=== PATIENT | male | born 1965 | race Two or more races ===

== ENCOUNTER 2025-09-08 10:54 | Inpatient (IN) | payer OTHER ==
[2025-09-08 11:20] VITALS: BMI 20.5
[2025-09-08] MEDS ORDERED: BENZOCAINE/MENTHOL (CHLORASEPTIC ) LOZENGE MM PRN (11:30)
[2025-09-08] MEDS ORDERED: METHOCARBAMOL 500 MG TABLET PO PRN (11:30)
[2025-09-08] MEDS ORDERED: IBUPROFEN 400 MG TABLET (FP) PO PRN (11:30)
[2025-09-08] MEDS ORDERED: LOPERAMIDE HCL 2 MG CAPSULE PO PRN (11:30)
[2025-09-08] MEDS ORDERED: ONDANSETRON *ODT* 4 MG TABLET SL PRN (11:30)
[2025-09-08] MEDS ORDERED: NALOXONE (NARCAN) HCL 4 MG/0.1 ML SPRAY NS PRN (11:30)
[2025-09-08] MEDS ORDERED: BISMUTH SUBSALICYLATE 524 MG/30 ML PO PRN (11:30)
[2025-09-08] MEDS ORDERED: guaiFENesin 600 MG TABLET.ER (FP) PO PRN (11:30)
[2025-09-08] MEDS ORDERED: IBUPROFEN 600 MG TABLET (FP) PO PRN (11:30)
[2025-09-08] MEDS ORDERED: DICYCLOMINE HCL 10 MG CAPSULE PO PRN (11:30)
[2025-09-08] MEDS ORDERED: MAGNESIUM HYDROX 2400MG/30ML ORAL SUSPENSION 30 ML CUP PO PRN (11:30)
[2025-09-08] MEDS ORDERED: BENZONATATE 200 MG CAPSULE PO PRN (11:30)
[2025-09-08] MEDS ORDERED: POLYETHYLENE GLYCOL (HEALTHYLAX) 3350 17 GM PACKET PO PRN (11:30)
[2025-09-08] MEDS ORDERED: ACETAMINOPHEN 325 MG TABLET (FP) PO PRN (11:30)
[2025-09-08] MEDS ORDERED: NICOTINE 21 MG/24 HOURS TOPICAL PATCH ONE (11:57)
[2025-09-08] MEDS ORDERED: PRENATAL VITAMINS W/ FOLIC ACID TABLET (FP) PO ONE (11:58)
[2025-09-08] MEDS: PRENATAL VITAMINS W/ FOLIC ACID TABLET (FP) PO SCH (11:59)
[2025-09-08] MEDS: NICOTINE 21 MG/24 HOURS TOPICAL PATCH TD SCH (11:59)
[2025-09-08] MEDS: NALTREXONE HCL 50 MG TABLET PO ONE (12:38)
[2025-09-08] MEDS: THIAMINE 100 MG TABLET PO SCH (22:21)
[2025-09-08] MEDS: MELATONIN 5 MG TABLETS PO SCH (22:22)
[2025-09-09] MEDS: MAG HYDROX/AL HYDROX/SIMETH 30 ML UNIT-DOSE CUP PO PRN (10:23)
[2025-09-09 12:51] LABS: MCHC 33.9 g/dl (32.3-36.5); MEAN CELL VOLUME 105.2 fl (79.0-92.2); MEAN PLT VOLUME 11.1 fl (9.4-12.4); RDW 12.7 % (12.2-16.4)
[2025-09-09 13:26] LABS: GLUCOSE,RANDOM 86.0 mg/dL (74-106); TOT PROT 6.6 g/dl (6.4-8.2)
[2025-09-09 13:27] LABS: CO2 35.0 mmol/L (21-32)
[2025-09-09 13:28] LABS: ALK PHOS 60.0 U/L (40-150)
[2025-09-09 13:32] LABS: CREATININE 0.86 mg/dL (0.55-1.3); SGOT/AST 60.0 U/L (5-34); SGPT/ALT 16.0 U/L (0-55); SYPHILIS W/ RPR CONF REACTIVE (NONREACTIVE)
[2025-09-09 18:06] LABS: RPR REFLEX REACTIVE 1:1 (NONREACTIVE)
[2025-09-09] MEDS: POTASSIUM CHLORIDE ORAL LIQUID 20 MEQ/15 ML PO ONE (19:27)
[2025-09-10] MEDS: POTASSIUM CHLORIDE ORAL LIQUID 20 MEQ/15 ML PO ONE ×2 (01:38→13:50)
[2025-09-10] MEDS ORDERED: POTASSIUM CHLORIDE ORAL LIQUID 20 MEQ/15 ML PO ONE (02:00)
[2025-09-10] MEDS: hydrOXYzine PAMOATE 25 MG CAPSULE (FP) PO PRN (06:04)
[2025-09-10] MEDS: MAGNESIUM OXIDE 400 MG TABLET (FP) PO ONE (17:12)
[2025-09-11] MEDS: POTASSIUM CHLORIDE ORAL LIQUID 20 MEQ/15 ML PO SCH (10:47)
[2025-09-11] MEDS: MAGNESIUM OXIDE 400 MG TABLET (FP) PO SCH (11:08)
[2025-09-11 21:19] VITALS: RESP 16
[2025-09-12 09:40] VITALS: BP 140/97; PULSE 100; TEMP 97.6
== END 2025-09-12 11:09 | disposition home or self-care (01) | DRG 775 ==
LOC: YASAS 10:54 → Y6N 12:08
PROVIDERS: ADMIT Allergy & Immunology; ATTEND Counselor Addiction (Substance Use Disorder)
PROC: HZ2ZZZZ Detoxification Services for Substance Abuse Treatment (ICD-10-PCS; principal; 2025-09-08)
DX: F10.230 Alcohol dependence with withdrawal, uncomplicated (principal); F17.210 Nicotine dependence, cigarettes, uncomplicated; F41.1 Generalized anxiety disorder; E87.6 Hypokalemia
CPT/HCPCS: 36415; 71046-TC-FY; 80053; 80307; 84132; 85027; 86593; 86780; 93005; 93010